=== PATIENT | male | born 1960 | race Caucasian/White ===

== ENCOUNTER 2022-10-04 10:41 | Emergency (ER) | payer BC, SELFPAY ==
[2022-10-04 10:57] VITALS: BP 136/81; PULSE 92; RESP 16; TEMP 37.1; O2SAT 98
[2022-10-04 11:08] VITALS: BP 136/81; PULSE 92; RESP 16; TEMP 37.1; O2SAT 98
--- NOTE | 2022-10-04 11:55 | ED.NAVMDI ---
HPI - Nausea/Vomiting/Diarrhea General Chief complaint: Nausea/Vomiting/Diarrhea Stated complaint: Diarrhea Time Seen by Provider: 10/04/22 11:40 Source: patient and RN notes reviewed Mode of arrival: ambulatory Limitations: no limitations History of Present Illness HPI Narrative: Patient presents today complaining a one-week history of diarrhea. Describes the stool as green and watery. States he is having approximately 4 episodes of diarrhea per day. Denies any additional symptoms to include abdominal pain, blood or mucus in the stool, nausea vomiting, fever. Believes he may have had food poisoning as he had a suspicious sandwich prior to onset of symptoms. He took 1 dose of Imodium initially without relief and took 2 doses of a probiotic without relief. Related Data Allergies Allergy/AdvReac Type Severity Reaction Status Date / Time No Known Allergies Allergy Verified 10/04/22 10:44 Review of Systems Review of Systems: CONSTITUTIONAL: Denies body aches, fever, chills, or sweats. EYES: Denies visual changes, redness, or discharge. ENT: Denies rhinorrhea, congestion, sore throat, or otalgia. CARDIOVASCULAR: Denies chest pain, palpitations, or edema. RESPIRATORY: Denies cough or dyspnea. GASTROINTESTINAL: Denies abdominal pain, nausea, vomiting. + diarrhea GENITOURINARY: Denies dysuria or hematuria. SKIN: Denies rash, itching, or wounds. MUSCULOSKELETAL: Denies back pain, joint pain, or myalgia. NEUROLOGIC: Denies headache, numbness, tingling, or weakness. PSYCH: Denies depression or anxiety. PMFSH Comments At time of signature, I have reviewed and agree with nursing past medical, surgical, social and family history unless otherwise noted. Please see nursing chart for further information. There is no relevant family history pertinent to the presenting complaint Exam Narrative: GENERAL: Well-appearing, well-nourished, and in no acute distress. HEAD: Normocephalic, atraumatic. EYES: EOMI. No redness or drainage. Conjunctivae normal. ENT: Mucous membranes pink and moist. NECK: Normal AROM. CHEST: No respiratory distress. Clear to auscultation. HEART: Regular rate and rhythm. No murmur appreciated. ABDOMEN: Soft, nontender, nondistended, normal active bowel sounds. EXTREMITIES: Normal range of motion. No edema. SKIN: Warm, dry, no rash. Capillary refill normal. Normal skin turgor. NEURO: No focal deficits. Alert and oriented x3. Gait steady. PSYCH: Normal affect. No signs of depression or anxiety. Course Course Level of Care: Express Care Visit Vital Signs Vital signs: Vital Signs Temperature 98.8 F 10/04/22 10:57 Pulse Rate 92 10/04/22 10:57 Respiratory Rate 16 10/04/22 10:57 Blood Pressure 136/81 10/04/22 10:57 Pulse Oximetry 98 10/04/22 10:57 Oxygen Delivery Room Air 10/04/22 10:57 Temperature 98.8 F 10/04/22 11:08 Pulse Rate 92 10/04/22 11:08 Respiratory Rate 16 10/04/22 11:08 Blood Pressure 136/81 10/04/22 11:08 Pulse Oximetry 98 10/04/22 11:08 Oxygen Delivery Room Air 10/04/22 11:08 Reviewed. Pt has been instructed to follow up with his PCP regarding his elevated blood pressure today. MDM - Nausea/Vomiting/Diarrhea MDM Narrative Medical decision making narrative: Patient continues to eat and drink normally. He is supplementing his fluid intake with Gatorade/Powerade. Will prescribe him some Lomotil if needed. Understands symptoms of when he may need to go to the ER. Anticipatory guidance given. Differential Diagnosis Differential diagnosis: Likely food poisoning, gastroenteritis and dehydration Critical Care Time Critical Care Time Critical Care Time: No Discharge Plan Discharge Clinical Impression: Diarrhea Qualifiers: Diarrhea type: unspecified type Qualified Code(s): R19.7 - Diarrhea, unspecified Patient Disposition: Home, Self-Care Condition: Stable Instructions: Acute Diarrhea (ED) Additional Instructions: Andrea
== END 2022-10-04 12:06 | disposition home or self-care (01) ==
PROVIDERS: Emergency Provider Nurse Practitioner; PCP Internal Medicine
DX: R19.7 Diarrhea, unspecified (principal)
CPT/HCPCS: 99213; G0463